=== PATIENT | female | born 1950 | race Caucasian/White ===

== ENCOUNTER 2021-10-04 10:08 | Day surgery (SDC) | payer MEDICARE ==
[2021-10-04] VITALS (21 sets, daily range): BP systolic 102–140; BP diastolic 59–100
[~2021-10-04] VITALS: Ht 165.1 cm; Wt 95.0 kg
[~2021-10-04 10:08] MED LIST: ASPI-41 PO; HYDR-3972 PO; HYDR25TA4 PO; LISI10TA27 PO; LOP25T PO
[2021-10-04] MEDS ORDERED: normal saline 1000ml 1,000 ML IV SCH (10:30)
[2021-10-04] MEDS ORDERED: MIDAZolam 1mg/ml 10ml vial IV ONE (10:30)
[2021-10-04] MEDS ORDERED: fentaNYL/PF 50MCG/1 ML 2ML syringe IV ONE (10:30)
[2021-10-04] MEDS ORDERED: METO-395 PO (10:37)
[2021-10-04] MEDS ORDERED: DUTA0.5C36 PO (10:37)
[2021-10-04] MEDS ORDERED: RIVA20TA PO (10:37)
[2021-10-04] MEDS ORDERED: SOTA80TA73 PO (10:37)
[2021-10-04 11:14] LABS: BASOPHILS # (AUTO) 0.1 X10'3 (0-0.2); BASOPHILS % (AUTO) 1.2 % (0-1); EOSINOPHILS # (AUTO) 0.2 X10'3 (0-0.9); EOSINOPHILS % (AUTO) 2.3 % (0-6); HEMATOCRIT 37.8 % (35.0-45.0); HEMOGLOBIN 12.5 g/dl (12.0-16.0); LYMPHOCYTES # (AUTO) 1.7 X10'3 (1.1-4.8); LYMPHOCYTES % (AUTO) 20.4 % (21-51); MEAN CORPUSCULAR HEMOGLOBIN 26.6 PG (27.0-31.0); MEAN CORPUSCULAR VOLUME 80.7 FL (78-98); MEAN PLATELET VOLUME 9.1 FL (7.4-10.4); MONOCYTES # (AUTO) 0.7 X10'3 (0-0.9); MONOCYTES % (AUTO) 8.9 % (2-12); NEUTROPHILS # (AUTO) 5.6 X10'3 (1.8-7.7); NEUTROPHILS % (AUTO) 67.2 % (42-75); PLATELET COUNT 302 X10'3 (140-440); RED BLOOD COUNT 4.69 X10'6 (4.20-5.60); RED CELL DISTRIBUTION WIDTH 15.5 % (11.5-14.5); WHITE BLOOD COUNT 8.3 X10'3 (4.5-11.0)
[2021-10-04 11:23] LABS: ALBUMIN 3.5 G/DL (3.4-5.0); ANION GAP 10 (8-16); BLOOD UREA NITROGEN 19 MG/DL (7-18); BUN/CREATININE RATIO 21.8 (6.6-38.0); CHLORIDE 102 MMOL/L (99-107); CREATININE 0.87 MG/DL (0.40-0.90); GLUCOSE 125 MG/DL (70-104); SODIUM 140 MMOL/L (135-145); eGFR 64 ML/MIN
[2021-10-04 11:31] LABS: POTASSIUM 2.8 MMOL/L (3.5-5.1)
[2021-10-04] MEDS ORDERED: potassium Cl 20 mEq SR tablet PO STA ×2 (11:38→12:27)
--- NOTE | 2021-10-04 11:40 | NUR ---
Notified Dr. Durham patient's potassium is 2.8. New order for 40 mEq once now and 20 mEq daily on discharge. BMP on Sunday.
== END 2021-10-04 16:10 | disposition home or self-care (01) ==
LOC: SSTAY O 10:08
PROVIDERS: ATTEND Internal Medicine Interventional Cardiology
DX: I48.91 Unspecified atrial fibrillation (principal); G47.33 Obstructive sleep apnea (adult) (pediatric); I11.9 Hypertensive heart disease without heart failure; I08.0 Rheumatic disorders of both mitral and aortic valves; I27.20 Pulmonary hypertension, unspecified; Z79.899 Other long term (current) drug therapy; Z79.01 Long term (current) use of anticoagulants
CPT/HCPCS: 36415; 80048; 85025; 85610; 92960; 93005; 94799

== ENCOUNTER 2022-07-18 11:37 | Day surgery (SDC) | payer MEDICARE ==
[2022-07-18] VITALS (8 sets, daily range): BP systolic 102–157; BP diastolic 53–99
[~2022-07-18] VITALS: Ht 165.1 cm; Wt 98.9 kg
[~2022-07-18 11:37] MED LIST changes: -ASPI-41 PO; +DUTA0.5C36 PO; -HYDR-3972 PO; -LISI10TA27 PO; -LOP25T PO; +METO-395 PO; +RIVA20TA PO; +SOTA80TA73 PO
[2022-07-18] MEDS ORDERED: MIDAZolam 1mg/ml 10ml vial IV ONE (11:55)
[2022-07-18] MEDS ORDERED: fentaNYL/PF 50MCG/1 ML 2ML syringe IV ONE (11:55)
[2022-07-18] MEDS ORDERED: normal saline 1000ml 1,000 ML IV SCH (11:55)
[2022-07-18] MEDS ORDERED: IBUP-1986 PO (13:06)
[2022-07-18] MEDS ORDERED: POTA-188 PO (13:06)
== END 2022-07-18 16:17 | disposition home or self-care (01) ==
LOC: SSTAY O 11:37
PROVIDERS: ATTEND Student in an Organized Health Care Education/Training Program
DX: I48.0 Paroxysmal atrial fibrillation (principal); G47.33 Obstructive sleep apnea (adult) (pediatric); I10 Essential (primary) hypertension; I08.0 Rheumatic disorders of both mitral and aortic valves; I27.20 Pulmonary hypertension, unspecified; Z79.899 Other long term (current) drug therapy
CPT/HCPCS: 92960; 93005; J2250; J3010; J7030; A4620

== ENCOUNTER 2022-08-04 10:39 | Emergency (ER) | payer MEDICARE ==
[~2022-08-04] VITALS: Ht 165.1 cm; Wt 95.0 kg
[~2022-08-04 10:39] MED LIST changes: +IBUP-1986 PO; -METO-395 PO; +POTA-188 PO
--- NOTE | 2022-08-04 10:55 | NUR ---
Dr. garcia of the patient received a verbal order for head and neck ct.
[2022-08-04 13:14] VITALS: BP 180/67
[2022-08-04] MEDS ORDERED: bacitracin 15gm ointment TP ONE (15:00)
== END 2022-08-04 15:11 | disposition home or self-care (01) ==
LOC: ER 10:40
DX: S01.21XA Laceration without foreign body of nose, initial encounter (principal); M25.461 Effusion, right knee; I11.9 Hypertensive heart disease without heart failure; Z79.899 Other long term (current) drug therapy; W18.39XA Other fall on same level, initial encounter; Y93.89 Activity, other specified; Y92.89 Other specified places as the place of occurrence of the external cause; Y99.8 Other external cause status
CPT/HCPCS: 70450; 72125; 73560; 99284; A6449

== ENCOUNTER 2023-09-28 09:30 | Day surgery (SDC) | payer MEDICARE ==
[2023-09-28] VITALS (13 sets, daily range): BP systolic 127–156; BP diastolic 66–88; PULSE 83–106; RESP 16–24; TEMP 98; O2SAT 96–100
[~2023-09-28] VITALS: Ht 165.1 cm; Wt 100.0 kg
[~2023-09-28 09:30] MED LIST changes: +DILT180C66 PO
[2023-09-28 10:19] LABS: BASOPHILS # (AUTO) 0.1 X10'3 (0-0.2); BASOPHILS % (AUTO) 0.8 % (0-1); EOSINOPHILS # (AUTO) 0.2 X10'3 (0-0.9); EOSINOPHILS % (AUTO) 1.9 % (0-6); HEMATOCRIT 33.3 % (35.0-45.0); HEMOGLOBIN 9.8 g/dl (12.0-16.0); LYMPHOCYTES # (AUTO) 1.8 X10'3 (1.1-4.8); LYMPHOCYTES % (AUTO) 16.7 % (21-51); MEAN CORPUSCULAR HEMOGLOBIN 18.4 PG (27.0-31.0); MEAN CORPUSCULAR HGB CONC 29.5 g/dL (33.0-36.5); MEAN CORPUSCULAR VOLUME 62.2 FL (78-98); MONOCYTES # (AUTO) 0.8 X10'3 (0-0.9); MONOCYTES % (AUTO) 7.6 % (2-12); NEUTROPHILS # (AUTO) 7.9 X10'3 (1.8-7.7); PLATELET COUNT 584 X10'3 (140-440); RED BLOOD COUNT 5.36 X10'6 (4.20-5.60); RED CELL DISTRIBUTION WIDTH 20.7 % (11.5-14.5); WHITE BLOOD COUNT 10.8 X10'3 (4.5-11.0)
[2023-09-28 10:28] LABS: ALBUMIN 3.7 G/DL (3.4-5.0); ANION GAP 10 (8-16); BLOOD UREA NITROGEN 18 MG/DL (7-18); CALCIUM 8.8 MG/DL (8.5-10.1); CHLORIDE 99 MMOL/L (99-107); CREATININE 1.06 MG/DL (0.40-0.90); GLUCOSE 136 MG/DL (70-104); MAGNESIUM 2.2 MG/DL (1.5-2.4); POTASSIUM 3.9 MMOL/L (3.5-5.1); SODIUM 135 MMOL/L (135-145); TOTAL CARBON DIOXIDE 25.9 MMOL/L (24-32); eCRCL 42 ML/MIN; eGFR 51 ML/MIN
[2023-09-28] MEDS ORDERED: ATOR40TA72 PO (10:46)
[2023-09-28] MEDS ORDERED: FURO20TA4 PO (10:46)
[2023-09-28] MEDS ORDERED: SOTA120T22 PO (10:46)
[2023-09-28] MEDS ORDERED: NORE5TAB PO (10:46)
[2023-09-28] MEDS ORDERED: glycopyrrolate 0.2mg/ml inj IV ONE (10:50)
[2023-09-28 10:56] LABS: PLATELET ESTIMATE INCREASED
[2023-09-28 11:00] LABS: ANISOCYTOSIS 3+; HYPOCHROMASIA 2+; MICROCYTOSIS 2+; POLYCHROMASIA 1+
[2023-09-28 11:01] LABS: ACANTHOCYTES FEW; BURR CELLS 1+; ELLIPTOCYTES 1+
[2023-09-28] MEDS: fentaNYL/PF 50MCG/1 ML 2ML syringe IV ONE (11:22)
[2023-09-28] MEDS: MIDAZolam 1mg/ml 10ml vial IV ONE (11:22)
[2023-09-28] MEDS: normal saline 1000ml 1,000 ML IV SCH (11:23)
== END 2023-09-28 12:22 | disposition home or self-care (01) ==
LOC: SSTAY O 09:30
PROVIDERS: ATTEND Internal Medicine Cardiovascular Disease
DX: I08.3 Combined rheumatic disorders of mitral, aortic and tricuspid valves (principal); I48.91 Unspecified atrial fibrillation; I27.20 Pulmonary hypertension, unspecified; I50.9 Heart failure, unspecified
CPT/HCPCS: 36415; 80048; 83735; 85025; 93312; 93320; 93325; J2250; J3010; J7030; 85008; 92960